=== PATIENT | male | born 1985 | race African-American/Black ===

== ENCOUNTER 2021-08-22 21:01 | Emergency (ER) | payer BC ==
[~2021-08-22] VITALS: Ht 180.3 cm; Wt 131.5 kg
[2021-08-22] MEDS ORDERED: LABETALOL HCL 100 MG/20 ML VIAL IV ONE (22:30)
[2021-08-22 22:44] LABS: HEMATOCRIT 43.6 % (36.7-47.1); MEAN CORPUSCULAR HEMOGLOBIN 29.8 uug (23.8-33.4); MEAN CORPUSCULAR VOLUME 89.5 fL (73.0-96.2); PLATELET COUNT (AUTO) 229 K/uL (152-348)
[2021-08-22 22:49] LABS: CREATININE 1.2 mg/dL (0.6-1.3); POTASSIUM 3.6 mmol/L (3.5-5.1)
[2021-08-22 22:55] LABS: BILIRUBIN,DIRECT 0.2 mg/dL (0.0-0.2); BILIRUBIN,TOTAL 0.6 mg/dL (0.2-1.0); TOTAL PROTEIN, SERUM 8.6 g/dL (6.4-8.2)
[2021-08-22] MEDS ORDERED: LABETALOL HCL 100 MG/20 ML VIAL ONE (22:58)
[2021-08-22] MEDS ORDERED: hydrALAZINE HCL 20 MG/1 ML VIAL IV ONE (23:15)
[2021-08-22] MEDS ORDERED: METO-358 PO (23:57)
[2021-08-22] MEDS ORDERED: LISI1TAB55 PO (23:57)
[2021-08-23] MEDS ORDERED: hydrALAZINE HCL 20 MG/1 ML VIAL ONE (00:20)
[2021-08-23] MEDS ORDERED: LABETALOL HCL 100 MG/20 ML VIAL ONE (00:24)
--- NOTE | 2021-08-23 01:40 | NUR ---
Pt given DC instructions and medication info, pt confirmed understanding of aftercare and has appt with pmd in AM. Pt has great color, temp and appearance. SBP 144/89, Pt states that he feels great and is asking aboutif he can work out. Pt advised that exercise can help bring down BP. Pt denies any pain, dizziness, nausea, discomfort or distress. No s/sx of distress present.
[2021-08-23 02:59] VITALS: BP 144/89
== END 2021-08-23 01:40 | disposition home or self-care (01) ==
LOC: EDBD 21:01 → ER 21:01
DX: I16.0 Hypertensive urgency (principal); K76.0 Fatty (change of) liver, not elsewhere classified; E66.01 Morbid (severe) obesity due to excess calories; Z68.41 Body mass index [BMI] 40.0-44.9, adult; R94.31 Abnormal electrocardiogram [ECG] [EKG]
CPT/HCPCS: 36415; 71046; 80048; 80076; 84484; 85025; 93005; 96374; 96375; 99285; J0360; J3490; 70030-TC; A4663